=== PATIENT | male | born 1945 | race Caucasian/White ===

== ENCOUNTER → 2016-11-18 | Day surgery (SDC) | payer OTHER ==
[~2016-11-18] VITALS: Ht 182.9 cm; Wt 96.0 kg
[~2016-11-18] MED LIST: ACETAMINOPHEN 500 MG CPLT PO PRN; ALAV10TA10 PO; ATROPINE SULFATE 1% OPHT SOLN 2 ML BTL ONE; BALANCED SALT SOLN OPHT IRRIG 15 ML BTL ONE; BUPIVACAINE HCL PF 0.75% 10 ML VIAL ONE; CHLORHEXIDINE GLUCONATE 2 % 1 PACK (2 CLOTHS) TOPICAL PRN; DEXAMETHASONE SOD PHOS 4 MG/ML VIAL ONE; DO NOT ADM ANY ANTICOAGULANT DRUGS PRN; EPINEPHrine HCL (1:1000) 1 MG/ML VIAL ONE; FLUT50SP EACH NARE; INSULIN HUMAN REGULAR 1,000 UNITS/10 ML VIAL SQ PRN; LACTATED RINGER'S 1000 ML INJ 1,000 ML IV ONE; LACTATED RINGER'S 1000 ML IV PRN; LEVO150T7 PO; METOPROLOL TARTRATE 25 MG TAB PO PRN; MIDAZOLAM HCL 2 MG/2 ML VIAL ONE; MUCI30TA2 PO; ONDANSETRON HCL 4 MG/2 ML VIAL IM PRN; PHENYLEPH/NS 1000 MCG/10 ML SYR IV ONE; POVIDONE IODINE 5% (ANTISEPSIS KIT) 4 APPLICATIONS EACH NARE PRN; PROPOFOL 200 MG/20 ML AMP IV ONE; SODIUM CHLORID 0.9% 500 ML IV PRN; STERILE WATER FOR INJ 20 ML VIAL ONE; TOBRAMYCIN 0.3%/DEXAMETHASONE 0.1% OPHT SUSP 5 ML BTL ONE; TOBRAMYCIN/DEXAMETHASONE OPTH OINT 3.5 GM TUBE ONE; TRIAMCINOLONE ACETONIDE/PF 40 MG/ML OPTH VIAL ONE; TROPICAMIDE 1% OPHT SOLN 15 ML BTL ONE; VITA1000 PO; ceFAZolin INJ 1,000 MG VIAL ONE; oxyCODONE/ACETAMINOPHEN 5 MG/325 MG TAB PO PRN
[2016-11-18 10:23] VITALS: BP 145/87; PULSE 76; RESP 20; TEMP 98.5; O2SAT 95
[2016-11-18 10:33] LABS: AUTOMATED NEUTROPHIL # 6.1 TH/MM3 (1.8-7.7); BASOPHIL % 0.6 % (0.0-2.0); EOSINOPHIL # 0.4 TH/MM3 (0-0.4); EOSINOPHIL % 4.2 % (0.0-4.0); HEMATOCRIT 41.8 % (39.0-51.0); HEMO FLAGS DIFF FINAL; LYMPH % 16.1 % (9.0-44.0); LYMPHOCYTE # 1.4 TH/MM3 (1.0-4.8); MEAN CELL VOLUME 93.5 FL (80.0-100.0); MEAN CORPUSCULAR HEMOGLOBIN 31.6 PG (27.0-34.0); MEAN CORPUSCULAR HGB CONC 33.8 % (32.0-36.0); MONO % 9.8 % (0.0-8.0); NEUT % 69.3 % (16.0-70.0); PLATELET COUNT 317 TH/MM3 (150-450); RED BLOOD COUNT 4.47 MIL/MM3 (4.50-5.90); RED CELL DISTRIBUTION WIDTH 14.6 % (11.6-17.2); WHITE BLOOD COUNT 8.8 TH/MM3 (4.0-11.0)
[2016-11-18] MEDS: CYCLOPENTOLATE HCL 1% OPHT SOLN 2 ML BTL RIGHT EYE SCH ×4 (11:46→12:35)
[2016-11-18] MEDS: ATROPINE SULFATE 1% OPHT SOLN 5 ML BTL RIGHT EYE SCH ×4 (11:47→12:35)
[2016-11-18] MEDS: PHENYLEPHRINE HCL 2.5% OPTH SOLN 2 ML BTL RIGHT EYE SCH ×4 (11:48→12:35)
[2016-11-18] MEDS: TROPICAMIDE 1% OPTH SOLN 2 ML BTL RIGHT EYE SCH ×4 (11:49→12:35)
--- NOTE | 2016-11-18 13:47 | EKG ---
Date Performed: 11/18/2016 Time Performed: 09:51:38 PTAGE: 71 years EKG: Sinus rhythm NORMAL ECG NO PREVIOUS TRACING DOCTOR: Deondre Tesfaye Interpretating Date/Time 11/18/2016 13:42:17
[2016-11-18 17:02] VITALS: BP 146/83; PULSE 80; RESP 20; TEMP 98.6; O2SAT 95
--- NOTE | 2016-11-21 20:20 | MP ---
cc: NIALL ROSADO M.D. DATE OF SURGERY: 11/18/2016. 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 OPERATIVE PROCEDURE PERFORMED: A scleral buckle procedure with trans pars plana vitrectomy, gas fluid exchange, endolaser photocoagulation, right eye. SURGEON: Niall Rosado MD. ANESTHESIA: General laryngeal mask anesthesia. INDICATIONS FOR THE PROCEDURE: Mr. Vargas is a 71-year-old gentleman with a twelve day history of decreased vision in his right eye. He presented with a near total retinal detachment on 11/06/2016 with vision of counting fingers at three feet in the right eye. The retina was detached and the patient wished to proceed electively with repair. He was consented for both a vitrectomy and scleral buckle procedure. Since he was phakic, the possibility of cataract formation with the surgery was discussed. Informed consent was obtained. No guarantee was made as to visual outcome. DESCRIPTION OF THE PROCEDURE IN DETAIL: He was brought to [facility] Operating Room [facility] and placed on the operating table. Appropriate anesthesia monitoring devices were applied and he was placed under a general anesthesia using a laryngeal mask. The right eye was prepped and draped in the usual sterile fashion. A lid speculum was placed. At this point, an appropriate time-out was called with the surgical team agreeing to the surgical site and planned procedure. Using the conjunctival forceps and Samson scissors, the conjunctiva was opened 360 degrees at the limbus with relaxing incisions at three and nine o'clock. All four quadrants were opened with blunt dissection using the Samson scissors. The four recti muscles were hooked on muscle hooks and transferred onto 4-0 black silk ties. All quadrants had good scleral thickness. A 40 band was placed around the eye and into the recti muscles and secured in each quadrant with a mattress 6-0 polyester suture. The ends were drawn with 70 sleeve in the superotemporal quadrant. It was tightened slightly. Next a standard 23-gauge three-port vitrectomy was carried out with the peripheral vitreous being removed with the peripheral vitreous removal being aided by scleral depression. Perfluoron liquid was used to flatten the retina after which laser retinopexy was performed nearly 360 degrees. The retinal break was found at approximately 8:30 o'clock and that was treated well with laser. The scleral buckle was then tightened and tied down and trimmed. The Perfluoron was removed with a soft tipped linear extrusion needle and exchanged for air and the air was exchanged for a 15% mixture of C3F8 gas. The cannulas were removed and two out of three sites closed with a single 7-0 Vicryl suture leaving the globe with good pressure and no visible air leaks. The conjunctiva was brought back up into place. The orbit was irrigated with a mixture of 0.75% Marcaine without epinephrine and tobramycin solution. The recti muscle ties were removed and then the conjunctiva was repaired at each relaxing incision with interrupted 7-0 chromic. A subconjunctival injection 8 milligrams of Kenalog and 125 milligrams in 0.5 cc of Ancef and 2 milligrams in 0.5 cc of Decadron were given at separate sites. Atropine drops were placed on the cornea. The lid speculum was removed and the patient was undraped. TobraDex ointment was placed on the cornea and then the right eye was patched and shielded. The patient had the laryngeal mask removed in the room and was returned to recovery in good condition laying on his left side. When awake and alert he will be asked to assume a face-down position. MD CARLTON Carias/BEATA /3:49 PM /8:12 PM
== END | disposition home or self-care (01) ==
LOC: HSDC 09:20
PROVIDERS: ATTEND Ophthalmology
DX: H33.001 Unspecified retinal detachment with retinal break, right eye (principal); Z01.810 Encounter for preprocedural cardiovascular examination
CPT/HCPCS: 00145; 67108; 85025; 93005; J0171; J0690; J1100; J2250; J2370; J3010; J7120; J3300